=== PATIENT | male | born 1960 | race Caucasian/White ===

== ENCOUNTER 2020-09-03 07:15 | Day surgery (SDC) | payer OTHER ==
[2020-09-03] MEDS ORDERED: Midazolam 1 MG/ML 2 ML SDV ONE (07:24)
[2020-09-03] MEDS ORDERED: Propofol 200 MG/20 ML SDV ONE (07:25)
[2020-09-03] MEDS ORDERED: fentaNYL 100 MCG/2 ML SDV ONE (07:25)
[2020-09-03] MEDS ORDERED: Sodium Chloride 0.9% 1,000 ML IV SCH (07:45)
--- NOTE | 2020-09-03 10:48 | OR ---
DATE OF PROCEDURE: 09/03/2020 SURGEON: Hany Frankel MD PROCEDURE: Colonoscopy. FINDINGS: Transverse colon polyp, approximately 5 mm, completely removed using cold biopsy forceps. COMPLICATIONS: None. [employer]: None. ANESTHESIA: MAC. PREOPERATIVE DIAGNOSIS: Screening colonoscopy. POSTOPERATIVE DIAGNOSIS: Screening colonoscopy. RISKS: Risks, benefits, alternatives, and limitations including but not limited to infection, bleeding, and perforation were explained to the patient who wished to proceed. PROCEDURE IN DETAIL: The patient was placed in left lateral decubitus position. Digital rectal exam was performed without abnormality. Scope was introduced and advanced atraumatically to the ileocecal valve. A photo was taken. The scope was brought back to the ascending, transverse, and descending colon and retroflexed. No evidence of old or new blood. No masses. The aforementioned polyp was identified and completely removed. No abnormalities on retroflexion. No colitis. Greater than 8 minutes spent removing the scope. Prep was acceptable, approximately 90% of luminal surface could be seen. Hany Frankel MD /[id number]
== END 2020-09-03 11:00 | disposition home or self-care (01) ==
LOC: JP.SDS 07:15
PROVIDERS: ATTEND Surgery
DX: Z12.11 Encounter for screening for malignant neoplasm of colon (principal); D12.3 Benign neoplasm of transverse colon; Z85.828 Personal history of other malignant neoplasm of skin; Z86.73 Personal history of transient ischemic attack (TIA), and cerebral infarction without residual deficits; Z86.010 Personal history of colon polyps
CPT/HCPCS: 45380; J2250; J2704; J3010; J7030

== ENCOUNTER 2025-04-15 12:56 | Emergency (ER) | payer OTHER ==
[2025-04-15 13:21] LABS: APPEARANCE,URINE CLOUDY (CLEAR); GLUCOSE,URINE 100 mg/dL (NEGATIVE); OCCULT BLOOD,URINE MODERATE (NEGATIVE)
[2025-04-15 13:27] LABS: SQUAMOUS EPITHELIAL CELLS,UR NOT SEEN /HPF
[2025-04-15 14:06] LABS: BASOPHILS ABSOLUTE AUTO 0.03 K/uL (0.00-0.10); BASOPHILS PERCENT AUTO 0.2 % (0.1-1.3); EOSINOPHILS PERCENT AUTO 0.1 % (0.0-5.4); IMMATURE GRAN ABSOLUTE AUTO 0.07 K/uL (0.00-0.23); IMMATURE GRAN PERCENT AUTO 0.5 % (0.0-0.7); LYMPHOCYTES ABSOLUTE AUTO 1.07 K/uL (0.8-3.3); LYMPHOCYTES PERCENT AUTO 7.4 % (11.4-47.7); MONOCYTES ABSOLUTE AUTO 0.92 K/uL (0.20-0.90); MONOCYTES PERCENT AUTO 6.4 % (3.3-12.6); NEUTROPHILS ABSOLUTE AUTO 12.27 K/uL (1.0-7.6); NEUTROPHILS PERCENT AUTO 85.4 % (40.0-78.1); PLATELET COUNT,PLT 259 K/uL (130-375); RED BLOOD CELL COUNT 5.43 M/uL (4.14-5.76); WHITE BLOOD CELL COUNT,WBC 14.4 K/uL (3.2-11.0)
[2025-04-15] MEDS: Ondansetron 4 MG/2 ML SDV IVPUSH ONE (14:06)
[2025-04-15] MEDS: Ketorolac 30 MG/ML SDV IVPUSH ONE (14:07)
[2025-04-15 14:12] LABS: EOSINOPHILS ABSOLUTE AUTO 0.02 K/uL (0.00-0.40)
[2025-04-15 14:27] LABS: A/G RATIO 1.0 (1.2-2.2); ALANINE AMINOTRANSFERASE,ALT 47 U/L (12-78); ASPARTATE AMNIOTRANSFERASE,AST 26 U/L (15-37); BILIRUBIN TOTAL 0.8 mg/dL (0.2-1.0); BLOOD UREA NITROGEN,BUN 15 mg/dL (7-18); CARBON DIOXIDE,CO2 25 mmol/L (21-32); CHLORIDE,CL 102 mmol/L (100-108); CREATININE 1.2 mg/dL (0.8-1.3); EST CRCL DRUG DOSING (CG) 65.06 mL/min; ESTIMATED GFR 68 mL/min (>60); GLUCOSE RANDOM 139 mg/dL (74-106); POTASSIUM,K 3.9 mmol/L (3.6-5.2); PROTEIN TOTAL,TP 7.5 g/dL (6.4-8.2); SODIUM,NA 138 mmol/L (140-148)
[2025-04-15 14:28] LABS: INR 1.0
== END 2025-04-15 16:46 | disposition home or self-care (01) ==
LOC: JP.ED 12:56
DX: N13.2 Hydronephrosis with renal and ureteral calculous obstruction (principal); R11.2 Nausea with vomiting, unspecified
CPT/HCPCS: 36415; 74176; 80053; 81001; 85025; 85610; 96361; 96374; 96375; 99284; A9270; J1885; J2405; J7030